=== PATIENT | female | born 1960 | race Caucasian/White ===

== ENCOUNTER 2017-03-28 20:38 | Emergency (ER) | payer SELFPAY ==
[~2017-03-28] VITALS: Ht 152.4 cm; Wt 96.2 kg
--- NOTE | 2017-03-28 22:18 | EKG ---
[address] [address] Test Date: 2017-03-28 Test Time: 22:11:28 Pat Name: MATILDA SOTELO Department: Room: Gender: F [employer]: : 1960 Requested By: ELISEO MCKINNEY Order Number: [id number] Reading MD: Measurements Intervals [place] Rate: 68 P: 134 [place]: 192 QRS: 168 QRSD: 86 T: 102 QT: 386 QTc: 415 Interpretive Statements SUPRAVENTRICULAR RHYTHM ABNORMAL RIGHT AXIS DEVIATION QRS(T) CONTOUR ABNORMALITY CONSISTENT WITH ANTEROSEPTAL INFARCT AGE UNDETERMINED CONSISTENT WITH HIGH LATERAL INFARCT AGE UNDETERMINED CONSIDER INFERIOR INFARCT RI6.01 Unconfirmed report No previous ECG available for comparison
[2017-03-28 22:35] LABS: BILIRUBIN,URINE NEG (NEG); CLARITY,URINE HAZY; COLOR,URINE YELLOW; GLUCOSE,URINE NEG (NEG); NITRITE,URINE NEG (NEG); UROBILINOGEN,URINE 0.2 mg/dL (0.2 mg/dL)
[2017-03-28 22:36] LABS: BACTERIA,URINE MOD /HPF (0-FEW); RBC,URINE RARE /HPF (0-2); SQUAMOUS EPITHELIAL CELL,UR MANY /LPF; WBC,URINE RARE /HPF (0-4)
[2017-03-28 22:37] LABS: AMPHETAMINE/METHAMPHETAMINE NEG (NEG); BARBITURATES NEG (NEG); BENZODIAZEPINES NEG (NEG); CANNABINOIDS NEG (NEG); COCAINE NEG (NEG); METHADONE NEG (NEG); OPIATES NEG (NEG); PHENCYCLIDINE NEG (NEG)
--- NOTE | 2017-03-28 22:51 | RAD ---
CT head without intravenous contrast History: Headache, hypertension. Comparison: None. Technique: Axial images are obtained of the head from the skull base through the vertex without IV contrast. Exposure: One or more of the following individualized dose reduction techniques were utilized for this examination: 1. Automated exposure control 2. Adjustment of the mA and/or kV according to patient size 3. Use of iterative reconstruction technique Findings: The ventricles are appropriate in size, shape, and location for the patient's age. No obvious intracranial mass, mass-effect, midline shift, hemorrhage or obvious acute infarction is identified. Basilar cisterns are patent. Bone windows demonstrate no acute calvarial abnormality. The visualized paranasal sinuses appear clear. Impression: No acute intracranial process. Please note that CT can be relatively insensitive to acute ischemic infarction for up to 24 hours after symptom onset. Electronically signed by: Naveen Rodas MD (03/28/2017 10:48 PM)
[2017-03-28 23:26] LABS: BASO # 0.1 x10^3/uL (0.0-0.2); BASO % 1 % (0-3); EOS # 0.1 x10^3/uL (0.0-0.7); EOS % 1 % (0-3); HEMATOCRIT 43.8 % (36.0-47.0); HEMOGLOBIN 14.7 g/dL (12.0-15.5); LYMPH # 2.7 x10^3/uL (1.0-4.8); LYMPH % 32 % (24-48); MEAN CORPUSCULAR HEMOGLOBIN 28 pg (25-35); MEAN CORPUSCULAR HGB CONC 34 g/dL (31-37); MEAN CORPUSCULAR VOLUME 84 fL (79-100); MONO # 0.5 x10^3/uL (0.0-1.1); MONO % 5 % (0-9); NEUT # 5.3 x10^3uL (1.8-7.7); NEUT % 62 % (31-73); PLATELET COUNT 274 x10^3/uL (140-400); RED CELL DISTRIBUTION WIDTH 14.8 % (11.5-14.5); WHITE BLOOD COUNT 8.7 x10^3/uL (4.0-11.0)
[2017-03-28 23:43] LABS: CALCIUM 9.5 mg/dL (8.5-10.1); CREATININE 0.6 mg/dL (0.6-1.0); GFR 103.8; POTASSIUM 3.8 mmol/L (3.5-5.1)
--- NOTE | 2017-03-29 00:18 | ED.ADGEN ---
Adult General HPI HPI Patient is a 56-year-old woman, history of hypertension, which she states was diagnosed about 7 years ago, for which she was initially prescribed medications which she has not taken for several years, who presents the emergency department with multiple complaints. Patient states that she woke this morning, feeling "not right". She states that she was feeling slightly off balance, is experiencing a headache. Patient states that she's also been experiencing pain in her left knee, states she had a fall about 3 months ago, and has pain persistently since that time. She has not sought care. Patient states that she was at work, around 7:30 this evening, when she was noted to be "writing up the page", stating that she was attempting to write a straight line but was unable to do so, she had not noticed this, but was brought her attention that the numbers which are writing were moving in an upward fashion across the page. At that time patient states she was expressing a headache, and blood pressure was checked at work, was noted to be 235/140. Patient then proceeded to the emergency Department by private vehicle. Upon arrival, blood pressure is 205/95 , she states that her headache is improved at this time, denies any chest pain or shortness of breath, any nausea or vomiting, any focal weakness, numbness or tingling, states that she occasionally will have blurred vision. Patient's NIH stroke scale upon evaluation is 0. She denies any injuries, any ingestions, any similar symptoms previously. She states she has not seen a primary care provider in about 7 years. Review of Systems Review of Systems Constitutional: Denies fever or chills [] Eyes: Denies change in visual acuity, redness, or eye pain [] HENT: Denies nasal congestion or sore throat [] Respiratory: Denies cough or shortness of breath [] Cardiovascular: No additional information not addressed in HPI [] GI: Denies abdominal pain, nausea, vomiting, bloody stools or diarrhea [] : Denies dysuria or hematuria [] Musculoskeletal: Denies back pain or joint pain [] Integument: Denies rash or skin lesions [] Neurologic: Denies focal weakness or sensory changes. Headache, inability to write [] Endocrine: Denies polyuria or polydipsia [] Current Medications Current Medications Current Medications Medications (Trade) Dose Ordered Sig/Lilly Start Time Stop Time Status Last Admin Dose Admin Nicardipine HCl (Cardene) 25 mg STK-MED ONCE 03/29/17 01:24 03/29/17 01:25 DC Nicardipine HCl 50 mg/Sodium Chloride 270 ml @ 0 mls/hr CONT PRN 03/29/17 00:30 UNV 03/29/17 01:40 5 MLS/HR Sodium Chloride 250 ml @ As Directed STK-MED ONCE 03/29/17 01:24 03/29/17 01:25 DC Allergies Allergies Allergies Coded Allergies Type Severity Reaction Last Updated Verified No Known Drug Allergies 03/28/17 No Physical Exam Physical Exam Constitutional: Well developed, well nourished, no acute distress, non-toxic appearance. [] HENT: Normocephalic, atraumatic, bilateral external ears normal, oropharynx moist, no oral exudates, nose normal. [] Eyes: PERRLA, EOMI, conjunctiva normal, no discharge. [] Neck: Normal range of motion, no tenderness, supple, no stridor. [] Cardiovascular:Heart rate regular rhythm, no murmur [] Lungs & Thorax: Bilateral breath sounds clear to auscultation [] Abdomen: Bowel sounds normal, soft, no tenderness, no masses, no pulsatile masses. [] Skin: Warm, dry, no erythema, no rash. [] Back: No tenderness, no CVA tenderness. [] Extremities: No tenderness, no cyanosis, no clubbing, ROM intact, no edema. [] Neurologic: Alert and oriented X 3, normal motor function, normal sensory function, no focal deficits noted. [] Psychologic: Affect normal, judgement normal, mood normal. [] Current Patient Data Lab Results Laboratory Tests Test 03/28/17 21:00 03/28/17 23:04 Urine Collection Type Unknown Urine Color Yellow Urine Clarity Hazy Urine pH 5.0 Urine Specific [place] 1.020 Urine Protein Neg (NEG-TRACE) Urine Glucose (UA) Neg mg/dL (NEG) Urine Ketones (Stick) Neg mg/dL (NEG) Urine Blood Small (NEG) Urine Nitrite Neg (NEG) Urine Bilirubin Neg (NEG) Urine Urobilinogen Dipstick 0.2 mg/dL (0.2 mg/dL) Urine Leukocyte Esterase Neg (NEG) Urine RBC Rare /HPF (0-2) Urine WBC Rare /HPF (0-4) Urine Squamous Epithelial Cells Many /LPF Urine Bacteria Mod /HPF (0-FEW) Urine Mucus Slight /LPF Urine Opiates Screen Neg (NEG) Urine Methadone Screen Neg (NEG) Urine Barbiturates Neg (NEG) Urine Phencyclidine Screen Neg (NEG) Urine Amphetamine/Methamphetamine Neg (NEG) Urine Benzodiazepines Screen Neg (NEG) Urine Cocaine Screen Neg (NEG) Urine Cannabinoids Screen Neg (NEG) Urine Ethyl Alcohol Neg (NEG) White Blood Count 8.7 x10^3/uL (4.0-11.0) Red Blood Count 5.20 x10^6/uL (3.50-5.40) Hemoglobin 14.7 g/dL (12.0-15.5) Hematocrit 43.8 % (36.0-47.0) Mean Corpuscular Volume 84 fL (79-100) Mean Corpuscular Hemoglobin 28 pg (25-35) Mean Corpuscular Hemoglobin Concent 34 g/dL (31-37) Red Cell Distribution Width 14.8 % (11.5-14.5) H Platelet Count 274 x10^3/uL (140-400) Neutrophils (%) (Auto) 62 % (31-73) Lymphocytes (%) (Auto) 32 % (24-48) Monocytes (%) (Auto) 5 % (0-9) Eosinophils (%) (Auto) 1 % (0-3) Basophils (%) (Auto) 1 % (0-3) Neutrophils # (Auto) 5.3 x10^3uL (1.8-7.7) Lymphocytes # (Auto) 2.7 x10^3/uL (1.0-4.8) Monocytes # (Auto) 0.5 x10^3/uL (0.0-1.1) Eosinophils # (Auto) 0.1 x10^3/uL (0.0-0.7) Basophils # (Auto) 0.1 x10^3/uL (0.0-0.2) Sodium Level 141 mmol/L (136-145) Potassium Level 3.8 mmol/L (3.5-5.1) Chloride Level 102 mmol/L (98-107) Carbon Dioxide Level 26 mmol/L (21-32) Anion Gap 13 (6-14) Blood Urea Nitrogen 16 mg/dL (7-20) Creatinine 0.6 mg/dL (0.6-1.0) Estimated GFR (Cockcroft-Gault) 103.8 Glucose Level 90 mg/dL (70-99) Calcium Level 9.5 mg/dL (8.5-10.1) Troponin I Quantitative 0.073 ng/mL (0-0.055) H OF-Jbv-Q-Type Natriuretic Peptide 204 pg/mL (0-124) H EKG EKG EC: Sinus rhythm, heart rate 68 beats minute, right axis deviation, QTC of 415, MI 182, QRS of 86, contour abnormalities noted in the inferior leads, with Q waves noted in lead 2, aVL, contour normality is noted in V1 and V2, with slight ST elevations of approximately 1 mm in V1, in half millimeter in V2 , abnormal ECG, no prior for comparison, does not meet STEMI criteria. As interpreted by me. [] Radiology/Procedures Radiology/Procedures [][address] [address] IMAGING REPORT Signed PATIENT: MATILDA SOTELO ACCOUNT: [id number] : 1960 LOCATION: ER AGE: 56 SEX: F EXAM STATUS: REG ER ORD. PHYSICIAN: ELISEO MCKINNEY DO REASON: LOONEY/HTN PROCEDURE: CT HEAD WO CONTRAST CT head without intravenous contrast History: Headache, hypertension. Comparison: None. Technique: Axial images are obtained of the head from the skull base through the vertex without IV contrast. Exposure: One or more of the following individualized dose reduction techniques were utilized for this examination: 1. Automated exposure control 2. Adjustment of the mA and/or kV according to patient size 3. Use of iterative reconstruction technique Findings: The ventricles are appropriate in size, shape, and location for the patient's age. No obvious intracranial mass, mass-effect, midline shift, hemorrhage or obvious acute infarction is identified. Basilar cisterns are patent. Bone windows demonstrate no acute calvarial abnormality. The visualized paranasal sinuses appear clear. Impression: No acute intracranial process. Please note that CT can be relatively insensitive to acute ischemic infarction for up to 24 hours after symptom onset. Electronically signed by: Naveen Joseph MD (03/28/2017 10:48 PM) DICTATED AND SIGNED BY: NAVEEN JOSEPH MD DATE: 03/28/17 2248 CC: ELISEO MCKINNEY DO; PCP,NO ~ Course & Med Decision Making Course & Med Decision Making Pertinent Labs and Imaging studies reviewed. (See chart for details) As stated patient then ate stroke scale is 0 upon arrival in the ED, she states her headache is much better. CT imaging of the head obtained, which not reveal any evidence of acute abnormalities, laboratory studies revealed a troponin that was positive at 0.073, patient is denying any chest pain, ECG is abnormal as stated, does not meet STEMI criteria. She has received aspirin prior to coming to the ED, from her place of work. I did discuss findings as above with Dr. Enrique howard of cardiology, no additional anticoagulation indicated at this time, will initiate the patient on a nicardipine infusion, as her heart rate is in the 60s at this time, with blood pressures remain in the 180s over 100s, will continue to follow enzymes. After speaking with Dr. Mathews,, hospitalist [place], due to the constellation of the patient's symptoms, decision to transfer the patient to [facility] for neurology and cardiology evaluation. As patient is not exhibiting any concerning neurologic symptoms at this time, and symptoms may be consistent with her uncontrolled hypertension, with a normal-appearing CT, no indication for neurology intervention at this time. I did discuss findings with Dr. escobar of internal medicine, patient was accepted to his service as a full admission to the cardiac telemetry floor, with continuation of the nicardipine infusion, for continued evaluation and management. Patient awaiting transportation in stable condition with nicardipine infusion in place. Final Impression Final Impression [] Problems: Dragon Disclaimer Dragon Disclaimer This electronic medical record was generated, in whole or in part, using a voice recognition dictation system. Departure: Impression: Primary Impression: Hypertensive crisis Additional Impression: Elevated troponin Disposition: XF OTHER Admitting Physician: Other Condition: IMPROVED ELISEO MCKINNEY DO Mar 29, 2017 00:18
[2017-03-29] MEDS ORDERED: IV NORMAL SALINE 250ML 250 ML ONE (01:24)
[2017-03-29 02:20] VITALS: BP 205/112
--- NOTE | 2017-03-29 07:35 | RAD ---
Portable AP view CXR: Clinical indications: Hypertension. Headache. Comparison: None available. Findings: No acute lung infiltrate or pleural effusion or pulmonary edema or lung mass or pneumothorax is seen. The heart size, pulmonary vasculature, mediastinum and both mao are unremarkable. Scoliosis is seen. Impression: No acute radiographic abnormality is seen.
--- NOTE | 2017-03-29 07:37 | RAD ---
4 view left knee study Streaky: Fall. Left knee pain Findings: No acute fracture or dislocation or osteolytic process is seen. The patella is normally aligned. There is degenerative spurring of the patellofemoral joint compartment and the medial and lateral tibiofemoral joint compartments. There is joint space narrowing of the medial tibiofemoral joint compartment. IMPRESSION: No acute fracture. Tricompartmental osteoarthritis.
== END 2017-03-29 02:25 | disposition short-term general hospital (02) ==
LOC: ER 20:38
DX: I16.9 Hypertensive crisis, unspecified (principal); R79.89 Other specified abnormal findings of blood chemistry; M25.562 Pain in left knee; I10 Essential (primary) hypertension
CPT/HCPCS: 36415; 70450; 71010; 73564; 80048; 80305; 80320; 81001; 83880; 84484; 85027; 93005; 96365; 99285; J7050; G0481

== ENCOUNTER → 2021-06-22 | Outpatient (CLI) | payer OTHER ==
--- NOTE | 2021-06-22 13:30 | RAD ---
EXAM: Bilateral knees, 3 views. HISTORY: Pain. COMPARISON: 03/28/2017. FINDINGS: 3 views of both knees are obtained. There is severe bilateral medial compartment joint spac e narrowing. There is bilateral medial compartment subchondral sclerosis and spurring. There is also moderate bilateral patellofemoral and lateral compartment spurring. There is no joint effusion. There is bilateral genu varus. IMPRESSION: 1. Severe medial compartment predominant osteoarthritis of both knees with bilateral genu varus. 2. No acute osseous finding. Electronically signed by: Shae Valle MD (06/22/2021 1:28 PM) [facility]
== END ==
LOC: RAD 12:43
PROVIDERS: ATTEND Orthopaedic Surgery
DX: M17.0 Bilateral primary osteoarthritis of knee (principal); M21.162 Varus deformity, not elsewhere classified, left knee; M21.161 Varus deformity, not elsewhere classified, right knee
CPT/HCPCS: 73565; 73560-50